=== PATIENT | female | born 1945 | race Caucasian/White ===

== ENCOUNTER 2018-02-11 08:27 | Day surgery (SDC) | payer MEDICARE, BC ==
[~2018-02-11 08:27] MED LIST: Acetaminophen TAB* 325 MG PO PRN; Buffered Lidocaine 0.9% SYRIN* 5 ML/SYR SYRINGE INTRADERM ONE
[2018-02-11] MEDS ORDERED: Midazolam* 1 MG/ML 2 ML VIAL (2 MG) ONE (10:26)
[2018-02-11] MEDS ORDERED: fentaNYL* 50 MCG/ML 2 ML VIAL (100 MCG VIAL) ONE (10:59)
[2018-02-11] MEDS ORDERED: Neomycin/Polymy/Dex OPTH.SUSP* MAXITROL 0.1% 5 ML ONE (11:07)
[2018-02-11] MEDS ORDERED: Proparacaine 0.5% OPHTH.SOL* 15 ML BTL ONE (11:07)
[2018-02-11] MEDS ORDERED: acetaZOLAMIDE TAB* 250 MG ONE (11:07)
[2018-02-11] MEDS ORDERED: Cyclopentolate 1% OPTH.SOL* 2 ML BTL ONE (11:07)
[2018-02-11] MEDS ORDERED: Lidocaine 1%* 5 ML VIAL ONE (11:07)
[2018-02-11] MEDS ORDERED: Lidocaine 2% EPI 1:200000 MPF*10-20 ML VIAL ONE (11:07)
[2018-02-11] MEDS ORDERED: Povidone Iodine 5% OPTH* 30 ML BTL ONE (11:07)
[2018-02-11] MEDS ORDERED: Phenylephrine 2.5% OPTH.SOL* 2 ML BTL ONE (11:07)
[2018-02-11] MEDS ORDERED: Ketorolac 0.5% OPHTH (NF) 0.5 % 5 ML BTL ONE (11:07)
[2018-02-11 11:20] VITALS: BP 109/93
--- NOTE | 2018-02-12 03:19 | OP ---
DATE OF OPERATION: 02/11/18 - [facility] DATE OF : 49 SURGEON: Blair Best M.D. PREOPERATIVE DIAGNOSIS: Cataract right eye. POSTOPERATIVE DIAGNOSIS: Cataract right eye. OPERATIVE PROCEDURE: Extracapsular cataract extraction with intraocular lens implant right eye. DESCRIPTION OF PROCEDURE: The patient was brought to the operating room after being given 1/2% Alcaine with epinephrine drops in the preoperative area. The eye was prepped and draped in the usual sterile fashion. Sterile drape and eyelid speculum were placed. Again, topical 1/2% Alcaine with epinephrine was given. A paracentesis incision was made at the 9 o'clock position with the No.75 blade. Clear cornea incision 2.2 x 2.2-mm was created at the 12 o'clock position starting at the anterior limbus using the 2.2-mm keratome. The anterior chamber was irrigated with 0.4 mL of 1% non-preservative intracameral lidocaine and filled with DisCoVisc. A capsulorrhexis was completed using the cystotome and the Utrata forceps. Hydrodissection was performed with balanced salt solution. The lens nucleus was removed with the Phacoemulsification handpiece without incident. Cortex was removed with the irrigation-aspiration handpiece. The capsular bag was re-inflated using DisCoVisc and an [id number] implant was inserted with the shooter. The irrigation-aspiration handpiece was used to remove all residual DisCoVisc. The eye was refilled with balanced salt solution, and the wound checked and found to be watertight. Topical Maxitrol drops were given. Of note, the patient had pseudoexfoliation and the zonules even during initial steps of the surgery were found to be very loose. The cataract was successfully removed, however, I did leave a small amount of lens cortex material due to the loose capsular attachments and fear was for compromising the capsular integrity. So, this was left even after the lens in the temporal aspect. [id number]/[facility] #: [id number] MTDD
== END 2018-02-11 11:38 | disposition home or self-care (01) ==
LOC: OREAST 08:27
PROVIDERS: ATTEND Specialist
DX: H25.811 Combined forms of age-related cataract, right eye (principal); H35.371 Puckering of macula, right eye; H40.1434 Capsular glaucoma with pseudoexfoliation of lens, bilateral, indeterminate stage; I10 Essential (primary) hypertension; E78.5 Hyperlipidemia, unspecified; M19.90 Unspecified osteoarthritis, unspecified site; D51.9 Vitamin B12 deficiency anemia, unspecified
CPT/HCPCS: A9270-GY; J2250; J3010; V2632

== ENCOUNTER 2018-11-11 08:51 | Day surgery (SDC) | payer MEDICARE, BC ==
[~2018-11-11 08:51] MED LIST changes: -Buffered Lidocaine 0.9% SYRIN* 5 ML/SYR SYRINGE INTRADERM ONE; +Buffered Lidocaine 1% SYRIN* 1 ML/SYRINGE INTRADERM ONE
[2018-11-11] MEDS ORDERED: Cyclopentolate 1% OPTH.SOL* 2 ML BTL ONE (09:41)
[2018-11-11] MEDS ORDERED: Povidone Iodine 5% OPTH* 30 ML BTL ONE (09:41)
[2018-11-11] MEDS ORDERED: Phenylephrine OPHTH SOL 2.5%* 2 ML ONE (09:41)
[2018-11-11] MEDS ORDERED: Ketorolac 0.5% OPHTH (NF) 0.5 % 5 ML BTL ONE (09:41)
[2018-11-11] MEDS ORDERED: acetaZOLAMIDE TAB* 250 MG ONE (09:41)
[2018-11-11] MEDS ORDERED: Lidocaine 2% EPI 1:200000 MPF*10-20 ML VIAL ONE (09:41)
[2018-11-11] MEDS ORDERED: Neomycin/Polymy/Dex OPTH.SUSP* MAXITROL 0.1% 5 ML ONE (09:41)
[2018-11-11] MEDS ORDERED: Lidocaine 1%* 5 ML VIAL ONE (09:41)
[2018-11-11] MEDS ORDERED: Proparacaine 0.5% OPHTH.SOL* 15 ML BTL ONE (09:41)
[2018-11-11] MEDS ORDERED: Midazolam* 1 MG/ML 2 ML VIAL (2 MG) ONE ×2 (11:27→12:20)
[2018-11-11 12:46] VITALS: BP 128/61
--- NOTE | 2018-11-11 13:31 | OP ---
DATE OF OPERATION: 11/11/2018. DATE OF : 1945. SURGEON: Blair Best M.D. PREOPERATIVE DIAGNOSIS: Cataract left eye. POSTOPERATIVE DIAGNOSIS: Cataract left eye. OPERATIVE PROCEDURE: Extracapsular cataract extraction with intraocular lens implant left eye. PROCEDURE: The patient was brought to the operating room after being given 1/2% Alcaine with epineph rine drops in the preoperative area. The eye was prepped and draped in the usual sterile fashion. S terile drape and eyelid speculum were placed. Again, topical 1/2% Alcaine with epinephrine was given . A paracentesis incision was made at the 3 o'clock position with the No.75 blade. Clear cornea inc ision 2.2 x 2.2-mm was created at the 6 o'clock position starting at the anterior limbus using the 2. 2-mm keratome. The anterior chamber was irrigated with 0.4 mL of 1% non-preservative intracameral li docaine and filled with DisCoVisc. A capsulorrhexis was completed using the cystotome and the Utrata forceps. Hydrodissection was performed with balanced salt solution. The lens nucleus was removed wi th the Phacoemulsification handpiece without incident. Cortex was removed with the irrigation-aspira tion handpiece. The capsular bag was re-inflated using DisCoVisc and an [id number] implant was insert ed with the shooter, followed by a capsular tension ring [id number] inserted with its shooter. All measu rements for the implant were confirmed with ORA. The irrigation-aspiration handpiece was used to rem ove all residual DisCoVisc. The eye was refilled with balanced salt solution and the wound checked a nd found to be watertight. Topical Maxitrol drops were given. [id number]/[facility] #: [id number]
== END 2018-11-11 12:52 | disposition home or self-care (01) ==
LOC: OREAST 08:51
PROVIDERS: ATTEND Specialist
DX: H40.1434 Capsular glaucoma with pseudoexfoliation of lens, bilateral, indeterminate stage (principal); H26.491 Other secondary cataract, right eye; H35.371 Puckering of macula, right eye; E78.5 Hyperlipidemia, unspecified; I10 Essential (primary) hypertension; M15.9 Polyosteoarthritis, unspecified; Z96.1 Presence of intraocular lens
CPT/HCPCS: A9270-GY; J2250; V2632